=== PATIENT | female | born 1965 | race Caucasian/White ===

== ENCOUNTER 2017-01-13 13:41 | Emergency (ER) | payer SELFPAY ==
[~2017-01-13 13:41] MED LIST: ALBU8.5H2 INHALATION; ARIP10TA16 PO; ATRINH INH; FLUO20CA25 PO; FUR20 PO; GABA-502 PO; GABA800T2 PO; HYDR-3090 PO; HYDR-4003 PO; OMEP20CA11 PO; PRE20 PO; ZIT250 PO
[2017-01-14] MEDS ORDERED: FERR325C PO (10:54)
== END 2017-01-13 13:50 | disposition left against medical advice (07) ==
LOC: SED 13:41
DX: Z53.20 Procedure and treatment not carried out because of patient's decision for unspecified reasons (principal)

== ENCOUNTER 2017-01-13 19:29 | Emergency (ER) | payer SELFPAY ==
[~2017-01-13] VITALS: Ht 165.1 cm; Wt 106.8 kg
[2017-01-13 19:46] VITALS: BP 122/74; PULSE 88; RESP 16; O2SAT 97
[2017-01-14] MEDS ORDERED: FERR325C PO (10:54)
== END 2017-01-13 20:30 | disposition left against medical advice (07) ==
LOC: SED 19:29
DX: Z53.21 Procedure and treatment not carried out due to patient leaving prior to being seen by health care provider (principal)

== ENCOUNTER 2017-01-14 09:24 | Emergency (ER) | payer MEDICAID ==
--- NOTE | 2017-01-14 09:28 | ED.REPORT ---
HPI-Abd Pain F 40 and Over Date of Service Jan 14, 2017 ED Provider: Dr. Jenkins A post menopausal 51 year old female with a history of COPD presents to the ED complaining of lower abdominal cramping and vaginal bleeding with clots. Vaginal bleeding onset 1.5 months ago. She reports using 2, 8-hour tampons per hour, and states that she averages about 15 tampons per day. The patient checked into the ED twice yesterday complaining of abdominal pain, but left before she saw a provider both times. 3 weeks ago, the patient had an US done by Dr. Conteh in [place], [place] which revealed fibroids, and a cyst on left ovary without uterine wall thickening. She did not have a blood count done. She has been post menopausal since December 2015. Associated symptoms include fatigue and feelings of anxiousness. She denies any dysuria. The patient does not take iron supplements. Per nurse note, patient cannot afford PCP, cannot afford to get her prescriptions filled, and has been off of her regular medications, which include, abilify, prozaac, and lasix, for 3 months. She does not have insurance. She is originally from [place], [place] and is moving to the area to with her boyfriend whose mother has Alzheimer's. Nursing Notes Stated Complaint: ABDOMINAL PAIN Nursing Notes Reviewed: Yes Allergies: Coded Allergies: Penicillins (Verified Allergy, Intermediate, 01/14/17) Scheduled Aripiprazole (Aripiprazole) 10 Mg Tablet 10 MG PO DAILY Azithromycin (Zithromax) 250 Mg Tablet 250 MG PO DAILY Ferrous Sulfate (Iron) 325 Mg Capsule.er 325 MG PO BID Fluoxetine (Fluoxetine) 20 Mg Capsule 20 MG PO DAILY Furosemide (Furosemide) 20 Mg Tab 20 MG PO BID 8am,3pm Gabapentin (Gabapentin) 800 Mg Tablet 800 MG PO QID Gabapentin (Gabapentin) 300 Mg Capsule 300 MG PO BID Omeprazole (Omeprazole) 20 Mg Capsule. 20 MG PO DAILY Prednisone (PredniSONE) 20 Mg Tablet 40 MG PO DAILY Prednisone (PredniSONE) 20 Mg Tablet 40 MG PO DAILY Scheduled PRN Albuterol HFA (Proair HFA) 8.5 Gm Hfa.aer.ad 2 PUFFS INHALATION Q4H PRN PRN For Shortness of Breath Hydrocodone-Acetaminophen 5-300 mg (Hydrocodone-Acetaminophen 5-300 mg) 1 Each Tablet 0.5 TABLET PO Q4H PRN PRN For Cough Hydrocodone-Acetaminophen 5-325 mg (Hydrocodone-Acetaminophen 5-325 mg) 1 Each Tablet 1 TABLET PO Q4H PRN PRN For Pain Hydrocodone-Acetaminophen 5-325 mg (Hydrocodone-Acetaminophen 5-325 mg) 1 Each Tablet 1-2 TABLET PO QID PRN PRN For Pain Ipratropium [place] (Atrovent HFA) 200 Puff/12.9 Gm Inhaler 1 PUFF INH Q6H PRN PRN For Shortness of Breath General Time Seen by MD: 09:27 Chief Complaint Abdominal pain Hx Obtained From: Patient Arrived By: Walk-in Sudden in Onset?: No Onset Occurred: More than a week ago... (1.5 months ago) Symptom Duration: Constant Severity: Current: Moderate Severity: Maximum: Moderate Recent Healthcare: No recent doctor visit (Visited ED twice yesterday, but both times she left before seeing a provider.) Similar Sx Previous: No Past Medical History Past Medical History COPD Hx of pneumonia Shingles Past Surgical History Cervical spine surgery x 2 foot surgery x2 hand surgery x 2 Family History Noncontributory Smoking History Former Smoker Social History Other Social History: Good social support, From out of town Ambulatory Status Independent Review of Systems feels anxious. Constitutional: Reports: Fatigue GI: Reports: Abdominal pain Female: Reports: Vaginal bleeding - abnl (with clots), Denies: Dysuria Complete sys rev & neg: except as marked. Physical Exam Vital Signs Vital Signs (First) Date Time Temp Pulse Resp B/P Pulse Ox O2 Delivery O2 Flow Rate FiO2 01/14/17 09:33 36.2 77 16 108/70 96 Room Air Initial VS: Reviewed General/Constitutional: Awake, Alert Appearance / Presentation: Positive: Obese Respiratory / Chest: Atraumatic, Breath sounds NL, Breath sounds = bilat, No respiratory distress, No rales, No rhonchi, No wheezing Cardiovascular: Heart rate NL, Regular rhythm, Heart sounds NL, No gallop, No murmurs, No rubs Abdomen: Atraumatic, No guarding, No rebound Back: Atraumatic, Full range of motion Head / Eyes: Atraumatic, Normocephalic, PERRL, EOMI ENT: Atraumatic, Mucous membranes moist Skin: Atraumatic, Color NL, Warm, Dry Not pale. Neurologic: Oriented X3, Speech NL Neck: Atraumatic, Full range of motion Upper Extremity / MS: Atraumatic, Full range of motion Wrist / Hand: Atraumatic, Full range of motion Lower Extremity / Pelvis / MS: Atraumatic, Full range of motion Interpretation & Diagnostics Lab Results Interpretation Result Diagram: 01/14/17 1015 Test 01/14/17 10:15 White Blood Count 5.5th/mm3 (3.8-10.1) Red Blood Count 4.89mil/mm3 (3.90-5.20) Hemoglobin 13.1g/dL (12.0-15.6) Hematocrit 41.1% (35.0-46.0) Mean Corpuscular Volume 84.0fL (81-100) Mean Corpuscular Hemoglobin 26.8pg (27.0-35.0) Mean Corpuscular Hemoglobin Concent 31.9% (32.0-37.0) Red Cell Distribution Width 17.6% (12.3-15.4) Platelet Count 137bil/L (150-400) Neutrophils (%) (Auto) 60.0% (40-74) Lymphocytes (%) (Auto) 25.2% (14-46) Monocytes (%) (Auto) 10.0% (4-12) Eosinophils (%) (Auto) 4.4% (0-5) Basophils (%) (Auto) 0.4% (0-3) Re-Eval/Medical Decision Med Decision/Clinical Course No change in the frequency of bleeding over the past few weeks, hemoglobin stable, not pale and well appearing. Will start iron and recommend close outpatient follow-up with [facility]. Return precautions given. Source of Hx: Old records Re-Evaluation/Progress : Time of Eval: 10:05 Re-Evaluation/Progress Note: Rechecked patient, explained plan to perform tests. Patient understands and agrees with the plan. All questions addressed. Counseled Regarding: Diagnosis, Lab results, Need for follow-up, When/why to return to ED Discharge & Departure Primary Impression: Vaginal bleeding Additional Impression: Abdominal cramping Disposition: Home Discharge Condition All VS Reviewed: Yes Condition: Stable Additional Instructions: Thank you for entrusting us with your care today. We discussed your concerns regarding your recent vaginal bleeding and subsequent abdominal pain. We did blood work and saw that some blood levels were low, so we sent you home with prescriptions for iron and vitamin C. We encourage you to call today for a close follow-up appt. with an [facility] ([facility] office #[phone]). If at any time you feel like the bleeding is uncontrollable, you begin to faint or feel extremely weak, please do not hesitate to return to the Emergency Department or call your Primary Care Physician for follow-up care regarding this condition. Referrals: Ben Alarcon MD [facility] Scribe Attestation Portions of this note were transcribed by Rufino Galeano. I, Dr. Jenkins personally performed the history, physical exam and medical decision-making; I reviewed and confirmed the accuracy of the information in the transcribed note. Signed by: Rosey Hinton, 01/14/2017 1211. copies to: Ben Alarcon MD; [facility] Kyle Jenkins DO Jan 14, 2017 09:28 Rufino Galeano Jan 14, 2017 09:45 Merlyn Reyes MD Jan 14, 2017 10:44
[2017-01-14 09:33] VITALS: BP 108/70; PULSE 77; RESP 16; O2SAT 96
[2017-01-14 10:27] LABS: BASOPHILS % (AUTO) 0.4 % (0-3); EOSINOPHILS % (AUTO) 4.4 % (0-5); Mean Corpuscular Hemoglobin 26.8 pg (27.0-35.0); Platelet Count 137 bil/L (150-400)
[2017-01-14] MEDS ORDERED: FERR325C PO (10:54)
[2017-01-14 11:16] VITALS: BP 110/72; PULSE 77; RESP 16; O2SAT 96
== END 2017-01-14 11:10 | disposition home or self-care (01) ==
LOC: SED 09:24
DX: N93.9 Abnormal uterine and vaginal bleeding, unspecified (principal); R10.30 Lower abdominal pain, unspecified; R53.83 Other fatigue; J44.9 Chronic obstructive pulmonary disease, unspecified; Z87.891 Personal history of nicotine dependence; Z88.0 Allergy status to penicillin

== ENCOUNTER 2017-01-26 18:28 | Emergency (ER) | payer MEDICAID ==
[~2017-01-26] VITALS: Ht 165.1 cm; Wt 111.4 kg
[~2017-01-26 18:28] MED LIST changes: +FERR325C PO
[2017-01-26 18:38] VITALS: BP 125/79; PULSE 90; RESP 18; O2SAT 97
--- NOTE | 2017-01-26 20:30 | ED.REPORT ---
HPI-Psychiatric Illness Date of Service Jan 26, 2017 ED Provider: Rivera Lopez DO A 51 year old female with a history of schizoaffective disorder and bipolar disorder is brought to the ED by family due to behavioral changes. The pt has been taking 10 mg daily Abilify for ten years and has been stable. She stopped taking this medication four months ago due to insurance issues, and has been acting abnormally since. Per she has been "off her rocker" and needs to be on Abilify again, but cannot afford the medication without insurance. The pt denies suicidal or homicidal ideation. 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 Nursing Notes Stated Complaint: FACIAL PAIN,THRUSH IN MOUTH Chief Complaint: Psychiatric Complaint Nursing Notes Reviewed: Yes Allergies: Coded Allergies: Penicillins (Verified Allergy, Intermediate, 01/26/17) Scheduled Aripiprazole (Aripiprazole) 10 Mg Tablet 10 MG PO DAILY Azithromycin (Zithromax) 250 Mg Tablet 250 MG PO DAILY Ferrous Sulfate (Iron) 325 Mg Capsule.er 325 MG PO BID Fluoxetine (Fluoxetine) 20 Mg Capsule 20 MG PO DAILY Furosemide (Furosemide) 20 Mg Tab 20 MG PO BID 8am,3pm Gabapentin (Gabapentin) 800 Mg Tablet 800 MG PO QID Gabapentin (Gabapentin) 300 Mg Capsule 300 MG PO BID Omeprazole (Omeprazole) 20 Mg Capsule.dr 20 MG PO DAILY Prednisone (PredniSONE) 20 Mg Tablet 40 MG PO DAILY Prednisone (PredniSONE) 20 Mg Tablet 40 MG PO DAILY Scheduled PRN Albuterol HFA (Proair HFA) 8.5 Gm Hfa.aer.ad 2 PUFFS INHALATION Q4H PRN PRN For Shortness of Breath Hydrocodone-Acetaminophen 5-300 mg (Hydrocodone-Acetaminophen 5-300 mg) 1 Each Tablet 0.5 TABLET PO Q4H PRN PRN For Cough Hydrocodone-Acetaminophen 5-325 mg (Hydrocodone-Acetaminophen 5-325 mg) 1 Each Tablet 1 TABLET PO Q4H PRN PRN For Pain Hydrocodone-Acetaminophen 5-325 mg (Hydrocodone-Acetaminophen 5-325 mg) 1 Each Tablet 1-2 TABLET PO QID PRN PRN For Pain Ipratropium [place] (Atrovent HFA) 200 Puff/12.9 Gm Inhaler 1 PUFF INH Q6H PRN PRN For Shortness of Breath General Time Seen by MD: 20:30 Chief Complaint Other (Abnormal behavior) Hx Obtained From: Patient, Spouse Arrived By: Walk-in Onset Occurred: More than a week ago... Symptom Duration: Since onset Recent Healthcare: No recent hospitalization, Recent doctor visit Similar Sx Previous: Yes Risk-Psychiatric Illness Suicide Risk Stratification Suicide Risk Factors - Adult: No: Alcohol use, Substance abuse RF Statements: Risk factors reviewed Past Medical History Past Medical History COPD Hx of pneumonia Shingles Past Surgical History Cervical spine surgery x 2 foot surgery x2 hand surgery x 2 Family History Noncontributory Smoking History Former Smoker Social History Alcohol Use: In recovery (since 2000) Drug Use: Denies drug use Other Social History: Good social support, From out of town Ambulatory Status Independent Review of Systems Review of Systems Note: abnormal behavior Constitutional: Denies: Fever Respiratory: Denies: Non-productive cough Cardiovascular: Denies: Chest pain GI: Denies: Abdominal pain Skin: Denies Rash Psychiatric: Reports: Anxiety Complete sys rev & neg: except as marked. Physical Exam Initial Vital Signs Vital Signs (First) Date Time Temp Pulse Resp B/P Pulse Ox O2 Delivery O2 Flow Rate FiO2 01/26/17 18:38 36.3 90 18 125/79 97 Room Air Initial VS: Reviewed General/Constitutional: Awake, Alert Neurologic: Oriented X3, Speech NL, No motor deficits, No sensory deficits Psychiatric: Affect NL Abnormal Mood/Affect: Positive: Anxious Head / Eyes: Atraumatic, Normocephalic, PERRL, EOMI ENT: Atraumatic, Airway patent, Mucous membranes moist Respiratory / Chest: Atraumatic, Breath sounds NL, Breath sounds = bilat, No respiratory distress Cardiovascular: Heart rate NL, Regular rhythm, Heart sounds NL Abdomen: Atraumatic, Soft, Non-tender Skin: Atraumatic, Color NL, No rash, Warm, Dry Neck: Atraumatic, Supple, Full range of motion Back: Atraumatic, Full range of motion Upper Extremity / MS: Atraumatic, Full range of motion Lower Extremity / Pelvis / MS: Atraumatic, Full range of motion Interpretation & Diagnostics Pulse Oximetry Interpretation Pulse Oximetry Interpretation: 97% on room air Pulse Oximetry: Pulse Ox normal Pulse Oximetry Interpretation: 96% on room air Pulse Oximetry: Pulse Ox normal Re-Eval/Medical Decision Re-Evaluation/Progress : Time of Eval: 21:22 Patient Status: Condition improved Re-Evaluation/Progress Note: Pt informed of the plan for psychiatry consultation and discharge during the initial interview. The pt understands and agrees with the plan. All questions are addressed at this time. Consultation : Consulted With: Psychiatry Call Returned at: 21:07 Note: Spoke with Dr. Luna, psychiatry, regarding pt's case. Dr. Luna recommends Trilafon. Counseled Regarding: Diagnosis, Need for follow-up, When/why to return to ED Discharge & Departure Impression: Primary Impression: Schizoaffective disorder Schizoaffective disorder type: unspecified Qualified Code: F25.9 - Schizoaffective disorder, unspecified Disposition: Home Discharge Condition All VS Reviewed: Yes Condition: Stable Patient Instructions: Schizoaffective Disorder (ED) Additional Instructions: Take Trilafon 4 mg twice daily. Make an appointment with [facility] to discuss this option. I prescribed you a seven-day course of the Trilafon. Do not take this with any other sedating medications or opiates because this medication can be sedating. You will need to be seen in follow-up within the next week. Call the [facility] tomorrow morning. Tell them that you need mental health evaluation as well as help filling your prescriptions. If you have any worsening symptoms or if you develop any side effects from the medication or develop any suicidal homicidal ideations then return to the emergency department right away. It was very nice meeting you. The psychiatrist I consulted thinks that this medication will be a win for you. If symptoms are not improved feel free to return to the emergency department. Referrals: [facility] (PCP) [facility] Gilbert Barrett Attestation Portions of this note were transcribed by Morgan Pyle. I, Dr. Lopez personally performed the history, physical exam and medical decision-making; I reviewed and confirmed the accuracy of the information in the transcribed note. Signed by: Rosey Shirley, 01/27/2017 and 0005. copies to: [facility]; [facility]; Gilbert Barrett Todd P DO Jan 26, 2017 20:30 MORGAN PYLE Jan 26, 2017 21:03
[2017-01-26] MEDS ORDERED: ARIPiprazole 10 mg Tablet PO ONE (20:50)
[2017-01-26] MEDS ORDERED: LORazepam 0.5 mg Tablet PO ONE (20:50)
[2017-01-26 21:33] VITALS: BP 114/77; PULSE 75; RESP 16; O2SAT 96
== END 2017-01-26 21:43 | disposition home or self-care (01) ==
LOC: SED 18:28
DX: F25.9 Schizoaffective disorder, unspecified (principal); J44.9 Chronic obstructive pulmonary disease, unspecified; Z88.0 Allergy status to penicillin; Z87.891 Personal history of nicotine dependence; Z87.01 Personal history of pneumonia (recurrent)

== ENCOUNTER 2017-02-26 09:32 | Emergency (ER) | payer MEDICAID, OTHER ==
[~2017-02-26] VITALS: Ht 165.1 cm; Wt 109.1 kg
[2017-02-26 09:36] VITALS: BP 141/90; PULSE 86; RESP 10; O2SAT 95
--- NOTE | 2017-02-26 09:46 | ED.REPORT ---
HPI-General Illness Date of Service Feb 26, 2017 ED Provider: Geraldo Moss MD Patient is a 51 year old female with a history of chronic back pain, bipolar disorder, schizoaffective disorder and personality disorder who presents to the ED complaining of lower left back pain onset three weeks ago. Associated symptoms include difficulty stopping during urination (but not incontinence) and tingling in her first toe on the right side. Patient describes the pain as similar to her chronic back pain.She denies dysuria or hematuria, nausea, fever , abdominal pain, inability to control bowel movement, falls or trauma. The patient reports that she is out psych and pain medication and would like a refill. She has not had her Abilify for the past three days. Nursing Notes Stated Complaint: BACK PAIN,MENTAL HEALTH Chief Complaint: General Complaint Nursing Notes Reviewed: Yes Allergies: Coded Allergies: Penicillins (Verified Allergy, Intermediate, 01/26/17) Scheduled Aripiprazole (Aripiprazole) 10 Mg Tablet 10 MG PO DAILY Aripiprazole (Aripiprazole) 10 Mg Tablet 10 MG PO DAILY Azithromycin (Zithromax) 250 Mg Tablet 250 MG PO DAILY Ferrous Sulfate (Iron) 325 Mg Capsule.er 325 MG PO BID Fluoxetine (Fluoxetine) 20 Mg Capsule 20 MG PO DAILY Furosemide (Furosemide) 20 Mg Tab 20 MG PO BID 8am,3pm Gabapentin (Gabapentin) 800 Mg Tablet 800 MG PO QID Gabapentin (Gabapentin) 300 Mg Capsule 300 MG PO BID Omeprazole (Omeprazole) 20 Mg Capsule.dr 20 MG PO DAILY Prednisone (PredniSONE) 20 Mg Tablet 40 MG PO DAILY Prednisone (PredniSONE) 20 Mg Tablet 40 MG PO DAILY Scheduled PRN Albuterol HFA (Proair HFA) 8.5 Gm Hfa.aer.ad 2 PUFFS INHALATION Q4H PRN PRN For Shortness of Breath Hydrocodone-Acetaminophen 5-300 mg (Hydrocodone-Acetaminophen 5-300 mg) 1 Each Tablet 0.5 TABLET PO Q4H PRN PRN For Cough Hydrocodone-Acetaminophen 5-325 mg (Hydrocodone-Acetaminophen 5-325 mg) 1 Each Tablet 1 TABLET PO Q4H PRN PRN For Pain Hydrocodone-Acetaminophen 5-325 mg (Hydrocodone-Acetaminophen 5-325 mg) 1 Each Tablet 1-2 TABLET PO QID PRN PRN For Pain Ipratropium [place] (Atrovent HFA) 200 Puff/12.9 Gm Inhaler 1 PUFF INH Q6H PRN PRN For Shortness of Breath General Time Seen by MD: 09:41 Chief Complaint Back pain Hx Obtained From: Patient Arrived By: Walk-in Sudden in Onset?: No Onset Occurred: More than a week ago... (3 weeks) Symptom Duration: Since onset Location: : Back Quality: Same as prior Similar Sx Previous: Yes Past Medical History Past Medical History COPD Hx of pneumonia Shingles personality disorder chronic back pain bipolar disorder Reports: Schizophrenia Past Surgical History Cervical spine surgery x 2 foot surgery x2 hand surgery x 2 Family History Noncontributory Smoking History Former Smoker Social History Alcohol Use: In recovery Drug Use: Denies drug use Other Social History: Good social support, From out of town Ambulatory Status Independent Review of Systems Full Review of Systems Respiratory: Denies: Non-productive cough, Shortness of breath GI: Denies: Nausea Female: Denies: Dysuria, Hematuria, Incontinence Musculoskeletal: Reports: Back pain Neurologic: Reports: Numbness (of left first toe) Complete sys rev & neg: except as marked. Physical Exam Vital Signs Vital Signs Date Time Temp Pulse Resp B/P Pulse Ox O2 Delivery O2 Flow Rate FiO2 02/26/17 09:36 36.2 86 10 141/90 95 Room Air Initial VS: Reviewed General/Constitutional: Awake, Alert, No acute distress Head / Eyes: Atraumatic, Normocephalic, PERRL, EOMI ENT: Atraumatic, Airway patent, Mucous membranes moist Neck: Supple, Full range of motion Respiratory / Chest: Atraumatic, Breath sounds NL, Breath sounds = bilat, No respiratory distress Cardiovascular: Heart rate NL, Regular rhythm, Heart sounds NL Abdomen: Atraumatic, Soft, Non-tender Back: No midline vertebral tend, No CVA tenderness reproducable lower left back pain Upper Extremities Upper Extremity / MS: Atraumatic, Full range of motion Lower Extremity / Pelvis / MS: Atraumatic, Full range of motion Skin: Atraumatic, Color NL, No rash, Warm, Dry Neurologic: Oriented X3, Speech NL, No motor deficits, No sensory deficits Psychiatric: Affect NL, Mood NL Re-Eval/Medical Decision Med Decision/Clinical Course 51-year-old female history of bipolar and chronic low back pain presenting complaining of her typical chronic low back pain for the past 3 weeks. Denies any red flag symptoms. Diffuse tenderness left lower back. No midline tenderness. No neurological deficits. Patient was here requesting a refill on her narcotics. I counseled her that we do not refill narcotics for chronic conditions here. She accepted Toradol. She also requested a refill on her psych meds but eloped prior to receiving this prescription. Source of Hx: Old records Time of Eval: 10:22 Patient Status: Condition improved Re-Evaluation/Progress Note: Discussed plan for treatment and discharge. The patient understands and agrees to the plan for discharge. All questions were addressed. Counseled Regarding: Diagnosis, Lab results, Need for follow-up, When/why to return to ED Discharge & Departure Primary Impression: Back pain Back pain location: low back pain Chronicity: unspecified Back pain laterality: left Sciatica presence: unspecified whether sciatica present Qualified Code: M54.5 - Low back pain Additional Impression: Bipolar 1 disorder Disposition: Home Discharge Condition All VS Reviewed: Yes Condition: Stable Patient Instructions: Acute Low Back Pain (ED) Additional Instructions: Follow up with your primary care physician on Tuesday. Please return to the emergency department if you develop any new or worsening symptoms. Referrals: [facility] (PCP) Rosey Attestation Portions of this note were transcribed by Blank Oden. I, Dr. Moss personally performed the history, physical exam and medical decision-making; I reviewed and confirmed the accuracy of the information in the transcribed note. Signed by: Rosey Arriola, 02/26/17 and 1014. copies to: [facility] Geraldo Moss MD Feb 26, 2017 09:46 Heather Oden Feb 26, 2017 09:52
[2017-02-26] MEDS ORDERED: ARIP10TA16 PO (09:53)
[2017-02-26] MEDS ORDERED: ARIPiprazole 10 mg Tablet PO ONE (09:55)
== END 2017-02-26 10:42 | disposition home or self-care (01) ==
LOC: SED 09:32
DX: M54.5 Low back pain (principal); F25.0 Schizoaffective disorder, bipolar type; F60.9 Personality disorder, unspecified; Z87.891 Personal history of nicotine dependence; Z79.899 Other long term (current) drug therapy; Z88.0 Allergy status to penicillin
CPT/HCPCS: 96372; 99284; J1885

== ENCOUNTER 2017-04-20 18:16 | Emergency (ER) | payer OTHER ==
[~2017-04-20] VITALS: Ht 165.1 cm; Wt 109.1 kg
[2017-04-20 18:21] VITALS: BP 130/82; PULSE 74; RESP 18; O2SAT 97
--- NOTE | 2017-04-20 21:08 | ED.REPORT ---
HPI-Back Pain 40 and Over Date of Service Apr 20, 2017 ED Provider: Truman Shaw MD Patient is a 51 year old female with a history of chronic back pain, bipolar disorder, schizoaffective disorder and personality disorder who presents to the ED complaining of lower left back pain on and off for the last year and increasing in severity over the past 2 days. The patient has had multiple ED visits for chronic or nonurgent issues often for chronic pain. She demonstrates Benzodiazepine and opioid medication seeking behavior per previous [facility] care plan. Patient reports that sitting for a long period of time increases her symptoms. She denies dysuria. No incontinence, weakness or sensory change. Denies IVDU. Nursing Notes Stated Complaint: BACK PAIN Chief Complaint: Back Pain or Injury Nursing Notes Reviewed: Yes Allergies: Coded Allergies: Penicillins (Verified Allergy, Intermediate, 01/26/17) Scheduled Aripiprazole (Aripiprazole) 10 Mg Tablet 10 MG PO DAILY Aripiprazole (Aripiprazole) 10 Mg Tablet 10 MG PO DAILY Azithromycin (Zithromax) 250 Mg Tablet 250 MG PO DAILY Ferrous Sulfate (Iron) 325 Mg Capsule.er 325 MG PO BID Fluoxetine (Fluoxetine) 20 Mg Capsule 20 MG PO DAILY Furosemide (Furosemide) 20 Mg Tab 20 MG PO BID 8am,3pm Gabapentin (Gabapentin) 800 Mg Tablet 800 MG PO QID Gabapentin (Gabapentin) 300 Mg Capsule 300 MG PO BID Omeprazole (Omeprazole) 20 Mg Capsule.dr 20 MG PO DAILY Prednisone (PredniSONE) 20 Mg Tablet 40 MG PO DAILY Prednisone (PredniSONE) 20 Mg Tablet 40 MG PO DAILY Scheduled PRN Albuterol HFA (Proair HFA) 8.5 Gm Hfa.aer.ad 2 PUFFS INHALATION Q4H PRN PRN For Shortness of Breath Hydrocodone-Acetaminophen 5-300 mg (Hydrocodone-Acetaminophen 5-300 mg) 1 Each Tablet 0.5 TABLET PO Q4H PRN PRN For Cough Hydrocodone-Acetaminophen 5-325 mg (Hydrocodone-Acetaminophen 5-325 mg) 1 Each Tablet 1 TABLET PO Q4H PRN PRN For Pain Hydrocodone-Acetaminophen 5-325 mg (Hydrocodone-Acetaminophen 5-325 mg) 1 Each Tablet 1-2 TABLET PO QID PRN PRN For Pain Ipratropium [place] (Atrovent HFA) 200 Puff/12.9 Gm Inhaler 1 PUFF INH Q6H PRN PRN For Shortness of Breath General Time Seen by MD: 18:26 Chief Complaint Back pain Hx Obtained From: Patient Arrived By: Walk-in Sudden in Onset?: Yes Onset Occurred: 2 days ago Symptom Duration: Since onset Caused by: Chronic Injury Location: : Spinal lumbar area Quality: Painful Radiation: : Does not radiate Severity: Current: Moderate Recent Healthcare: Recent doctor visit Similar Sx Previous: Yes Past Medical History Past Medical History COPD Hx of pneumonia Shingles personality disorder chronic back pain bipolar disorder Reports: Schizophrenia Past Surgical History Cervical spine surgery x 2 foot surgery x2 hand surgery x 2 Family History Noncontributory Smoking History Former Smoker Social History Alcohol Use: In recovery Drug Use: Denies drug use Other Social History: Good social support, From out of town Ambulatory Status Independent Review of Systems Constitutional: Denies: Chills, Fever Cardiovascular: Denies: Chest pain Female: Reports: Incontinence, Denies: Dysuria Musculoskeletal: Reports: Back pain, Denies: Extremity pain, Extremity swelling, Joint pain, Joint swelling Neurologic: Reports: Numbness, Denies: Change LOC, Confusion, Dizziness, Headache, Lightheaded, Problem walking, Weakness Complete sys rev & neg: except as marked. Physical Exam Initial Vital Signs Vital Signs (First) Date Time Temp Pulse Resp B/P Pulse Ox O2 Delivery O2 Flow Rate FiO2 04/20/17 18:21 36.4 74 18 130/82 97 Room Air Initial VS: Reviewed General/Constitutional: Awake, Alert, Cooperative Respiratory / Chest: Atraumatic, Breath sounds NL, Breath sounds = bilat, No respiratory distress Cardiovascular: Heart rate NL, Regular rhythm, Heart sounds NL Abdomen: Atraumatic, Soft, Non-tender, No guarding, No rebound Back: No midline vertebral tend left paraspinal tenderness strength intact sensation intact able to stand up normally out of bed Neurologic: Oriented X3, Speech NL, No motor deficits, No sensory deficits, CN II - XII intact, Reflexes equal bilat Lower Extremity / Pelvis / MS: Atraumatic, Inspection NL, Full range of motion , No deformity Skin: Atraumatic, Warm, Dry Head / Eyes: Atraumatic, Normocephalic, PERRL, EOMI Upper Extremity / MS: Atraumatic, Inspection NL, Full range of motion, No deformity Re-Eval/Medical Decision Med Decision/Clinical Course In summary, the patient is a 51-year-old female with past medical history significant for back pain, who presents with an exacerbation of her underlying back pain. Our primary and secondary assessment reveals an awake, alert patient in no acute distress. Hemodynamically stable and afebrile. Exam reveals normal neurologic exam of the lower extremities. Given this immunocompetent, afebrile, patient's history and exam, suspect muscle strain or spasm. No concerning signs or symptoms suggestive of cauda equina, cord compression, epidural abscess or other neurologic emergency. History not suggestive of referred intraabdominal pathology or vascular emergency. There is no history of significant trauma, fever, incontinence, unexplained weight loss, cancer history, long-term steroid use or IV drug use. And given the patient's young age, I do not feel imaging is warranted at this time. Given the patient's workup, feel they are safe for discharge with conservative management. The patient was given intramuscular Toradol for some control here in the emergency department and reported improvement. Have discussed with the patient results of workup, indications for return including: motor weakness in the lower extremities and/or bowel or bladder incontinence. Also emphasized the need for PCP follow up. They understand and agree with the plan. Counseled Regarding: Diagnosis, Lab results, Need for follow-up, When/why to return to ED Discharge & Departure Impression: Primary Impression: Low back pain Chronicity: chronic Back pain laterality: left Sciatica presence: unspecified whether sciatica present Qualified Code: M54.5 - Low back pain Additional Impressions: Opiate dependence Substance use status: with unspecified opioid-induced disorder Qualified Code : F11.29 - Opioid dependence with unspecified opioid-induced disorder Back sprain Disposition: Home Discharge Condition All VS Reviewed: Yes Condition: Stable Additional Instructions: Thank you for seeking care at the emergency room. It is difficult for us to make definitive diagnoses in the ED but we believe that you are experiencing muscle spasm/sprain. Our primary goal today in the ED was to evaluate you for any life-threatening conditions. Your evaluation was reassuring. You should follow-up with a primary doctor in the next week. Please extraction, avoid prolonged bed rest and apply ice packs/hot packs. You should return to the ED immediately if you develop increasing pain, weakness , fevers, vomiting, cough, shortness of breath, chest pain, lightheadedness, weakness or any other concerning signs or symptoms. Thank you for letting us partake in your care today. Referrals: NOPCP (PCP) [facility] Scribe Attestation Portion of this note were transcribed by Franci Christine. I, Dr. Shaw, personally performed the history, physical exam, and medical decision-making: I reviewed and confirmed the accuracy for the information in the transcribed note. Signed by: christine Harris, 04/20/17 [id number] copies to: [facility] Truman Shaw MD Apr 20, 2017 21:08 Franci Christine Apr 20, 2017 21:19
== END 2017-04-20 21:30 | disposition home or self-care (01) ==
LOC: SED 18:16
DX: S33.5XXA Sprain of ligaments of lumbar spine, initial encounter (principal); X50.1XXA Overexertion from prolonged static or awkward postures, initial encounter; Y93.89 Activity, other specified; Y92.89 Other specified places as the place of occurrence of the external cause; Y99.8 Other external cause status; F11.29 Opioid dependence with unspecified opioid-induced disorder; J44.9 Chronic obstructive pulmonary disease, unspecified; F20.9 Schizophrenia, unspecified; F31.9 Bipolar disorder, unspecified; Z98.890 Other specified postprocedural states; Z87.891 Personal history of nicotine dependence; Z88.0 Allergy status to penicillin

== ENCOUNTER 2017-04-22 14:54 | Emergency (ER) | payer OTHER ==
[~2017-04-22] VITALS: Ht 165.1 cm; Wt 109.1 kg
[2017-04-22 15:01] VITALS: BP 126/87; PULSE 83; RESP 16; O2SAT 95
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
[2017-04-22] MEDS ORDERED: oxyCODONE-Acetamin 5-325 mg Tablet PO ONE (15:40)
--- NOTE | 2017-04-22 16:17 | DRSVH ---
PROCEDURE: CT CERVICAL SPINE WITHOUT CONTRAST ([id number]) INDICATIONS: trauma TECHNIQUE: Noncontrast 3 mm thick sections acquired from the skull base to the T4 level. Sagittal and coronal r eformats were then constructed. For radiation dose reduction, the following was used: automated exp osure control, adjustment of mA and/or kV according to patient size. COMPARISON: None. FINDINGS: Image quality: Diagnostic. Bones: The craniocervical and atlantoaxial joints are well-maintained. The odontoid is intact. The vertebral body heights and prevertebral soft tissues are within normal limits throughout the cervical spine without evidence to suggest acute compression fracture. No other fractures are evident within the cervical spine. The bone mineralization is within normal limits. Extensive postoperative changes of the cervical spine are present related to a C3-C7 anterior discect junior and fusion. Multiple anteriorly positioned orthopedic devices are evident. The hardware is inta ct. There is slight lucency surrounding the screws of the the C3 level. There appear to be areas of bony central canal narrowing throughout the fused levels. Severe multilevel degenerative changes of the cervical spine are present. Soft tissues: No prevertebral soft tissue swelling. The imaged lung apices are clear. Imaged porti ons of the mediastinum are unremarkable. Otherwise, the remainder of the imaged soft tissues of the neck are within normal limits. IMPRESSION: 1. No acute fracture of the cervical spine. 2. Extensive postoperative changes of the cervical spine. The hardware is intact. The alignment th rough the cervical region is within normal limits. Subtle lucency involving the C3 vertebral body sc rews may be related to loosening, on a chronic basis. 3. Prominent degenerative changes of the cervical spine. Dictated by: Josemanuel Rivera M.D. on 04/22/2017 at 16:12 Approved by: Josemanuel Rivera M.D. on 04/22/2017 at 16:15
[2017-04-22] MEDS ORDERED: OXYC1TAB24 PO (17:01)
[2017-04-22 17:26] VITALS: BP 126/92; PULSE 77; RESP 16; O2SAT 94
== END 2017-04-22 17:27 | disposition home or self-care (01) ==
LOC: SED 14:54
DX: S16.1XXA Strain of muscle, fascia and tendon at neck level, initial encounter (principal); V43.62XA Car passenger injured in collision with other type car in traffic accident, initial encounter; Y93.89 Activity, other specified; Y92.410 Unspecified street and highway as the place of occurrence of the external cause; Y99.8 Other external cause status; J44.9 Chronic obstructive pulmonary disease, unspecified; F31.9 Bipolar disorder, unspecified; F20.9 Schizophrenia, unspecified; Z98.890 Other specified postprocedural states; Z87.891 Personal history of nicotine dependence; Z88.0 Allergy status to penicillin

== ENCOUNTER 2017-04-26 17:34 | Emergency (ER) | payer OTHER ==
[~2017-04-26] VITALS: Ht 175.3 cm; Wt 109.1 kg
[~2017-04-26 17:34] MED LIST changes: +OXYC1TAB24 PO
[2017-04-26 17:37] VITALS: BP 134/82; PULSE 99; RESP 20; O2SAT 96
--- NOTE | 2017-04-26 18:19 | ED.REPORT ---
HPI-Back Pain 40 and Over Date of Service Apr 26, 2017 ED Provider: History of Present Illness: low back pain, chronic back pain with urine leakage for 2 months. no primary care. taking ibuprofen and tylenol. 04/16 ongoing since November. Nursing Notes Stated Complaint: SEVERE BACK PAIN Chief Complaint: Back Pain or Injury Nursing Notes Reviewed: Yes Allergies: Coded Allergies: Penicillins (Verified Allergy, Intermediate, 04/26/17) Scheduled Aripiprazole (Aripiprazole) 10 Mg Tablet 10 MG PO DAILY Aripiprazole (Aripiprazole) 10 Mg Tablet 10 MG PO DAILY Azithromycin (Zithromax) 250 Mg Tablet 250 MG PO DAILY Ferrous Sulfate (Iron) 325 Mg Capsule.er 325 MG PO BID Fluoxetine (Fluoxetine) 20 Mg Capsule 20 MG PO DAILY Furosemide (Furosemide) 20 Mg Tab 20 MG PO BID 8am,3pm Gabapentin (Gabapentin) 800 Mg Tablet 800 MG PO QID Gabapentin (Gabapentin) 300 Mg Capsule 300 MG PO BID Omeprazole (Omeprazole) 20 Mg Capsule.dr 20 MG PO DAILY Prednisone (PredniSONE) 20 Mg Tablet 40 MG PO DAILY Prednisone (PredniSONE) 20 Mg Tablet 40 MG PO DAILY Scheduled PRN Albuterol HFA (Proair HFA) 8.5 Gm Hfa.aer.ad 2 PUFFS INHALATION Q4H PRN PRN For Shortness of Breath Hydrocodone-Acetaminophen 5-300 mg (Hydrocodone-Acetaminophen 5-300 mg) 1 Each Tablet 0.5 TABLET PO Q4H PRN PRN For Cough Hydrocodone-Acetaminophen 5-325 mg (Hydrocodone-Acetaminophen 5-325 mg) 1 Each Tablet 1 TABLET PO Q4H PRN PRN For Pain Hydrocodone-Acetaminophen 5-325 mg (Hydrocodone-Acetaminophen 5-325 mg) 1 Each Tablet 1-2 TABLET PO QID PRN PRN For Pain Ipratropium [place] (Atrovent HFA) 200 Puff/12.9 Gm Inhaler 1 PUFF INH Q6H PRN PRN For Shortness of Breath oxyCODONE-Acetaminophen 5-325 mg (oxyCODONE-Acetaminophen 5-325 mg) 1 Each Tablet 1 TAB PO Q4H PRN PRN For Pain General Time Seen by MD: 18:19 Chief Complaint Back pain Hx Obtained From: Patient Sudden in Onset?: No Caused by: Spontaneous/no mechanism Past Medical History Past Medical History Notes: Safia report dated 10/14/2016 requests no pain medication be provided except from primary care. Past Medical History COPD Hx of pneumonia Shingles personality disorder chronic back pain bipolar disorder Reports: Schizophrenia Past Surgical History Cervical spine surgery x 2 foot surgery x2 hand surgery x 2 Family History Noncontributory Smoking History Current Every Day Smoker (7 cig a day for 15 years) Social History Alcohol Use: In recovery Drug Use: Denies drug use Other Social History: Good social support, From out of town Occupation lives with partner no work or school 04/26/2017 Ambulatory Status Independent Review of Systems Basic Review of Systems Eyes: Vision NL, No discharge Skin: No bruising, No rash, No itch Psychiatric: Normal thought content Physical Exam Initial Vital Signs Vital Signs (First) Date Time Temp Pulse Resp B/P Pulse Ox O2 Delivery O2 Flow Rate FiO2 04/26/17 17:37 36.7 99 20 134/82 96 Room Air Initial VS: Reviewed, Vital signs normal Head / Eyes: Atraumatic, Normocephalic, PERRL ENT: Mucous membranes moist, Conjunctiva normal, No scleral icterus Neck: Supple, Non-tender, Full range of motion Lymphatic: No lymphadenopathy Extremities: Vascular intact, Neuro intact, No swelling, No tenderness Skin: Warm, Dry, No cyanosis Psychiatric: Mood/affect normal, Behavior normal, Normal thought content General/Constitutional: Awake, Alert, No acute distress Respiratory / Chest: Atraumatic, Breath sounds NL, Breath sounds = bilat Cardiovascular: Heart rate NL, Regular rhythm, Heart sounds NL, No gallop Abdomen: Atraumatic, Soft, Non-tender Back: Atraumatic, Inspection NL, Full range of motion Neurologic: Oriented X3, Speech NL, No motor deficits Interpretation & Diagnostics Interpretation & Diagnostics: PROCEDURE: US PELVIC SONOGRAM, LIMITED INDICATIONS: Back pain. ? post void residual of bladder TECHNIQUE: Real-time transabdominal scanning was performed of the pelvic organs, with image documentation. COMPARISON: None. FINDINGS: Limited evaluation performed for post void urinary bladder volume. Prevoid urinary bladder volume 21 cc. Post void urinary bladder volume 0 cc. Right adnexa measures 3.6 x 3.5 x 3.1 cm. There is a 2.6 x 2.9 x 2.0 cm right adnexal cyst. Left ovary is not definitely identified. IMPRESSION: Post void urinary bladder volume of 0 cc. Dictated by: Naomy Ding MD, PhD on 04/26/2017 at 20:16 Approved by: Naomy Ding MD, PhD on 04/26/2017 at 20:17 Lab Results Interpretation Test 04/26/17 18:35 Hold Urine Received (Received) Lab Results Interpretation: Urine is negative. Patient voided about 20 minutes before US Re-Eval/Medical Decision Med Decision/Clinical Course 51 year old female presents to the ER for ongoing pain. Patient with many visists for back and neck pain. Patient states she has been haivng urine leakage for 2 months. Patient seen at ER here 6 days ago with no compliants of urine leakage. Post void US shows 21 ml in bladder. Patient able to void and US indicates 0 post void. No sign of retention. No sign of cauda equina. No sign of fracture. Discussed with patient the need to establish in primary care and to start kegel exercises. Discharge & Departure Impression: Primary Impression: Low back pain Chronicity: chronic Additional Impression: Chronic pain Chronic pain type: other chronic pain Qualified Code: G89.29 - Other chronic pain Disposition: Home Patient Instructions: Chronic Pain (ED), Low Back Strain (ED) Additional Instructions: Your urine looks good, no sign of infection. The ultrasound shows a post void residual of 21 and then 0 after voiding again. The urine leakage that you are having is related to weak pelvic floor muscles. Start doing your kegels!. Use prednisone 40 mg daily for 3 days, then 30 mg daily for 3 days, then 20 mg daily for 3 days then 10 mg daily for 3 days. Can use visteral to help with muscle relaxation. You have been assigned to Dr. Vu Harris. If you feel it is not a good fit, please call your insurance and request someone else. He also has different providers in his office. I am sorry that you are having difficulties. Referrals: Vu Harris MD EDSupervising Provider for APC: Guille Galicia MD copies to: Vu Harris MD, Sue ARNP Apr 26, 2017 18:19
--- NOTE | 2017-04-26 20:19 | DRSVH ---
PROCEDURE: US PELVIC SONOGRAM, LIMITED INDICATIONS: Back pain. ? post void residual of bladder TECHNIQUE: Real-time transabdominal scanning was performed of the pelvic organs, with image documentation. COMPARISON: None. FINDINGS: Limited evaluation performed for post void urinary bladder volume. Prevoid urinary bladder volume 21 cc. Post void urinary bladder volume 0 cc. Right adnexa measures 3.6 x 3.5 x 3.1 cm. There is a 2 .6 x 2.9 x 2.0 cm right adnexal cyst. Left ovary is not definitely identified. IMPRESSION: Post void urinary bladder volume of 0 cc. Dictated by: Naomy Ding MD, PhD on 04/26/2017 at 20:16 Approved by: Naomy Ding MD, PhD on 04/26/2017 at 20:17
== END 2017-04-26 19:45 | disposition home or self-care (01) ==
LOC: SED 17:34
DX: M54.5 Low back pain (principal); G89.29 Other chronic pain; F17.200 Nicotine dependence, unspecified, uncomplicated; Z88.0 Allergy status to penicillin; J44.9 Chronic obstructive pulmonary disease, unspecified
CPT/HCPCS: 76857; 96372; 99284; J1885

== ENCOUNTER 2017-05-03 12:56 | Emergency (ER) | payer OTHER ==
[2017-05-03 13:03] VITALS: BP 118/79; PULSE 77; RESP 16; O2SAT 97
[2017-05-03] MEDS ORDERED: hydrOXYzine Pamoate 25 mg Capsule PO ONE (13:50)
--- NOTE | 2017-05-03 13:53 | ED.REPORT ---
HPI-Back Pain 40 and Over Date of Service May 03, 2017 ED Provider: Soto Mccarthy PA-C Diana is a 51-year-old female presenting with chief complaint of lower back pain. She reports playing on the left side of the lower back which she describes as steady. She reports a history of back pain has been worsened in the last several days as she is staying with her in-laws and "cannot get comfortable" complains of anxiety. Denies numbness, tingling, weakness or pain in lower extremity. Denies fever, DM, HIV, organ transplant, immunosuppression, recent surgery, recent infection, history of back surgery, surgical implants and IV drug use. Denies bowel/bladder dysfunction and saddle anesthesia. Denies urinary symptoms such as hematuria, dysuria. Review of records indicates a history of drug-seeking behavior. [facility] report asks that we do not prescribe narcotic pain medications. Nursing Notes Stated Complaint: ANXIETY AND BACK PAIN Chief Complaint: Back Pain or Injury Nursing Notes Reviewed: Yes Allergies: Coded Allergies: Penicillins (Verified Allergy, Intermediate, 05/03/17) Scheduled Aripiprazole (Aripiprazole) 10 Mg Tablet 10 MG PO DAILY Aripiprazole (Aripiprazole) 10 Mg Tablet 10 MG PO DAILY Azithromycin (Zithromax) 250 Mg Tablet 250 MG PO DAILY Ferrous Sulfate (Iron) 325 Mg Capsule.er 325 MG PO BID Fluoxetine (Fluoxetine) 20 Mg Capsule 20 MG PO DAILY Furosemide (Furosemide) 20 Mg Tab 20 MG PO BID 8am,3pm Gabapentin (Gabapentin) 800 Mg Tablet 800 MG PO QID Gabapentin (Gabapentin) 300 Mg Capsule 300 MG PO BID Omeprazole (Omeprazole) 20 Mg Capsule.dr 20 MG PO DAILY Prednisone (PredniSONE) 20 Mg Tablet 40 MG PO DAILY Prednisone (PredniSONE) 20 Mg Tablet 40 MG PO DAILY Scheduled PRN Acetaminophen (Acetaminophen) 500 Mg Tablet 1,000 MG PO Q6H PRN PRN For Pain Albuterol HFA (Proair HFA) 8.5 Gm Hfa.aer.ad 2 PUFFS INHALATION Q4H PRN PRN For Shortness of Breath Hydrocodone-Acetaminophen 5-300 mg (Hydrocodone-Acetaminophen 5-300 mg) 1 Each Tablet 0.5 TABLET PO Q4H PRN PRN For Cough Hydrocodone-Acetaminophen 5-325 mg (Hydrocodone-Acetaminophen 5-325 mg) 1 Each Tablet 1 TABLET PO Q4H PRN PRN For Pain Hydrocodone-Acetaminophen 5-325 mg (Hydrocodone-Acetaminophen 5-325 mg) 1 Each Tablet 1-2 TABLET PO QID PRN PRN For Pain Hydroxyzine Pamoate (HydrOXYzine Pamoate) 25 Mg Capsule 25 MG PO TID PRN PRN For Anxiety or Agitation Ipratropium [place] (Atrovent HFA) 200 Puff/12.9 Gm Inhaler 1 PUFF INH Q6H PRN PRN For Shortness of Breath Naproxen (Naproxen) 500 Mg Tablet.dr 500 MG PO BID PRN PRN For Pain oxyCODONE-Acetaminophen 5-325 mg (oxyCODONE-Acetaminophen 5-325 mg) 1 Each Tablet 1 TAB PO Q4H PRN PRN For Pain General Time Seen by MD: 13:37 Chief Complaint Lumbar pain Sudden in Onset?: No Past Medical History Past Medical History Notes: [facility] report dated 10/14/2016 requests no pain medication be provided except from primary care. Past Medical History COPD Hx of pneumonia Shingles personality disorder chronic back pain bipolar disorder Reports: Schizophrenia Past Surgical History Cervical spine surgery x 2 foot surgery x2 hand surgery x 2 Family History Noncontributory Smoking History Current Every Day Smoker Social History Alcohol Use: In recovery Drug Use: Denies drug use Other Social History: Good social support, From out of town Occupation lives with partner no work or school 04/26/2017 Ambulatory Status Independent Review of Systems Negative unless stated otherwise in history of present illness Physical Exam General: Well appearing, well developed, well nourished, no acute distress. Head: Atraumatic, normocephalic. Eyes: No scleral icterus or injection. No discharge. Vision grossly intact. ENT: Voice clear, hearing grossly intact. Respiratory: Regular rate and rhythm. Breath sounds present, clear to auscultation and equal bilaterally. No respiratory distress. No increased work of breathing, speaks in complete sentences. Cardiovascular: Regular rate and rhythm, without murmur, gallop or rub. No pedal edema. Gastrointestinal: Abdomen flat and non-tender without guarding or rebound. Bowel sounds normoactive. Skin: Warm and dry. Back: Normal to inspection, no midline spinous process tenderness, negative CVA tenderness, negative SI tenderness Neurological: Normal gait, toe walk, heel walk, Romberg. Patellar and Achilles reflexes present and equal B/L. Sensation to sharp touch intact at medial leg, dorsal foot and lateral foot B/L. negative seated straight leg raise, negative seated cross straight leg raise. Psychological: Alert and oriented. Speech appropriate, linear and logical. Behavior appropriate. Initial Vital Signs Vital Signs (First) Date Time Temp Pulse Resp B/P Pulse Ox O2 Delivery O2 Flow Rate FiO2 05/03/17 13:03 36.7 77 16 118/79 97 Room Air Normal Re-Eval/Medical Decision Med Decision/Clinical Course History of female with a history of low back pain presents with chief complaint of low back pain as well as anxiety. S[facility]IA reports a history of drug-seeking behavior and the patient has many visits for pain complaints in the department. Per [facility], her PCP does not wish to be prescribed opiate analgesia. Plans of increasing left-sided back pain, which she believes is due to stay with her in- laws right now. Has red flag symptoms for cauda equina, epidural abscess, hematoma. Damage reveals a well-appearing woman with a normal neurological examination, nontender back including CVA. Vitals are within normal limits, afebrile. Back pain is without red flag symptoms for acute disc herniation, cauda equina, infection, hematoma, trauma, pyelonephritis, nephrolithiasis, AAA , cancer. I believe this is musculoskeletal back pain. I believe she is stable and safe to be discharged. Provided prescriptions for naproxen, acetaminophen, hydroxyzine. Advised regarding primary care follow-up, provided emergency return precautions. Patient verbalized understanding of, and consent to, the plan. Discharge & Departure Impression: Primary Impression: Chronic low back pain without sciatica Back pain laterality: left Qualified Code: M54.5 - Low back pain Disposition: Home Discharge Condition All VS Reviewed: Yes Additional Instructions: Evaluation for low back pain in the emergency department consists of interview and physical examination both of which are reassuring that her pain is unlikely to be due to and immediately dangerous cause such as an infection or an impingement on your spinal cord. I believe this is an exacerbation of her chronic lower back pain. Pain is best treated with 500 mg naproxen (Aleve) every 12 hours as well as 1000 mg of acetaminophen (Tylenol) every 6 hours. These vacations can be taken together for more severe pain. I will provide prescriptions. He also complained of anxiety. For this I can offer you hydroxyzine 25 mg to be taken every 8 hours as needed for anxiety. Please not drive or drink alcohol with taking this medication. Please follow up with a primary care provider as soon as possible to further address these concerns. I provided a referral to the residency clinic. Return to emergency department for new or worsening symptoms including numbness between your legs, fever, loss of bowel/bladder function. Referrals: [facility] EDSupervising Provider for APC: Charlie Lundberg MD, Seth PA-C May 03, 2017 13:53
[2017-05-03] MEDS ORDERED: ACET-171 PO (13:55)
[2017-05-03] MEDS ORDERED: HYDR-3797 PO (13:55)
[2017-05-03] MEDS ORDERED: NAPR500T5 PO (13:55)
[2017-05-03 14:17] VITALS: BP 145/87; PULSE 88; RESP 16; O2SAT 99
== END 2017-05-03 14:19 | disposition home or self-care (01) ==
LOC: SED 12:56
DX: M54.5 Low back pain (principal); J44.9 Chronic obstructive pulmonary disease, unspecified; F20.9 Schizophrenia, unspecified; F31.9 Bipolar disorder, unspecified; F17.200 Nicotine dependence, unspecified, uncomplicated; Z88.0 Allergy status to penicillin
CPT/HCPCS: 99283; Q0177

== ENCOUNTER 2017-05-24 12:03 | Emergency (ER) | payer OTHER ==
[~2017-05-24] VITALS: Ht 165.1 cm; Wt 108.2 kg
[~2017-05-24 12:03] MED LIST changes: +ACET-171 PO; +HYDR-3797 PO; +NAPR500T5 PO
[2017-05-24 12:24] VITALS: BP 138/81; PULSE 101; RESP 16; O2SAT 98
--- NOTE | 2017-05-24 13:16 | DRSVH ---
PROCEDURE: X-RAY CHEST, TWO VIEWS ([id number]) INDICATIONS: back, cp TECHNIQUE: 2 views of the chest were acquired. COMPARISON: [facility], CT, CT CHEST WO CON, 10/22/2016, 11:31. [facility], CR, XR CHEST 1VW (PORTABLE), 10/22/2016, 9:30. FINDINGS: Surgical changes and devices: Cervical fixation is present. Lungs and pleura: No pleural effusions or pneumothorax. Left upper lobe mass like opacity measuring 20 mm. It appears mildly more prominent when compared to 10/22/16. It is noted this appeared to cor respond to a healing rib fracture identified on 10/22/16. Mediastinum: Mediastinal contours are normal. Heart size is normal. Bones and chest wall: No suspicious bony abnormalities. Soft tissues appear unremarkable. IMPRESSION: 1. No acute pulmonary process. 2. Left upper lobe masslike opacity, mildly more prominent when compared to prior exam. It is noted t hat this corresponded to a focus of healing rib on prior exam. Increased prominence is suspected to b e related to increased sclerosis secondary to healing. Dictated by: Ouomu Villalba M.D. on 05/24/2017 at 13:08 Approved by: Oumou Villalba M.D. on 05/24/2017 at 13:15
[2017-05-24 13:37] LABS: BASOPHILS % (AUTO) 0.1 % (0-3); EOSINOPHILS % (AUTO) 4.2 % (0-5); MONOCYTES % (AUTO) 7.2 % (4-12); Mean Corpuscular Hemoglobin 27.3 pg (27.0-35.0); Mean Corpuscular Volume 82.3 fL (81-100); NEUTROPHILS % (AUTO) 67.9 % (40-74); Platelet Count 153 bil/L (150-400)
--- NOTE | 2017-05-24 13:49 | ED.REPORT ---
HPI-Dyspnea / Wheezing Date of Service May 24, 2017 ED Provider: Gertrude Sandoval History of Present Illness: left back pain, can't breath, cough for 3 to 4 days. has copd , had pneumonia in oct and November. primary care is no one. Nursing Notes Stated Complaint: POSS. PNEUMONIA/LOW BACK PAIN Chief Complaint: Respiratory Distress Nursing Notes Reviewed: Yes Allergies: Coded Allergies: Penicillins (Verified Allergy, Intermediate, 05/24/17) Scheduled Aripiprazole (Aripiprazole) 10 Mg Tablet 10 MG PO DAILY Aripiprazole (Aripiprazole) 10 Mg Tablet 10 MG PO DAILY Azithromycin (Zithromax) 250 Mg Tablet 250 MG PO DAILY Ferrous Sulfate (Iron) 325 Mg Capsule.er 325 MG PO BID Fluoxetine (Fluoxetine) 20 Mg Capsule 20 MG PO DAILY Furosemide (Furosemide) 20 Mg Tab 20 MG PO BID 8am,3pm Gabapentin (Gabapentin) 800 Mg Tablet 800 MG PO QID Gabapentin (Gabapentin) 300 Mg Capsule 300 MG PO BID Omeprazole (Omeprazole) 20 Mg Capsule.dr 20 MG PO DAILY Prednisone (PredniSONE) 20 Mg Tablet 40 MG PO DAILY Prednisone (PredniSONE) 20 Mg Tablet 40 MG PO DAILY Scheduled PRN Acetaminophen (Acetaminophen) 500 Mg Tablet 1,000 MG PO Q6H PRN PRN For Pain Albuterol HFA (Proair HFA) 8.5 Gm Hfa.aer.ad 2 PUFFS INHALATION Q4H PRN PRN For Shortness of Breath Hydrocodone-Acetaminophen 5-300 mg (Hydrocodone-Acetaminophen 5-300 mg) 1 Each Tablet 0.5 TABLET PO Q4H PRN PRN For Cough Hydrocodone-Acetaminophen 5-325 mg (Hydrocodone-Acetaminophen 5-325 mg) 1 Each Tablet 1 TABLET PO Q4H PRN PRN For Pain Hydrocodone-Acetaminophen 5-325 mg (Hydrocodone-Acetaminophen 5-325 mg) 1 Each Tablet 1-2 TABLET PO QID PRN PRN For Pain Hydroxyzine Pamoate (HydrOXYzine Pamoate) 25 Mg Capsule 25 MG PO TID PRN PRN For Anxiety or Agitation Ipratropium [place] (Atrovent HFA) 200 Puff/12.9 Gm Inhaler 1 PUFF INH Q6H PRN PRN For Shortness of Breath Naproxen (Naproxen) 500 Mg Tablet.dr 500 MG PO BID PRN PRN For Pain oxyCODONE-Acetaminophen 5-325 mg (oxyCODONE-Acetaminophen 5-325 mg) 1 Each Tablet 1 TAB PO Q4H PRN PRN For Pain General Time Seen by MD: 13:47 Chief Complaint Shortness of breath Hx Obtained From: Patient Sudden in Onset?: No Past Medical History Past Medical History Notes: [place] report dated 10/14/2016 requests no pain medication be provided except from primary care. Past Medical History COPD Hx of pneumonia Shingles personality disorder chronic back pain bipolar disorder Reports: Schizophrenia Past Surgical History Cervical spine surgery x 2 foot surgery x2 hand surgery x 2 Family History Noncontributory Smoking History Current Every Day Smoker Social History Alcohol Use: In recovery Drug Use: Denies drug use Other Social History: Good social support, From out of town Occupation lives with partner no work or school 04/26/2017 Ambulatory Status Independent Review of Systems Basic Review of Systems Eyes: Vision NL, No discharge Hematologic: No bleeding, No bruising Psychiatric: Normal thought content Physical Exam Initial Vital Signs Vital Signs (First) Date Time Temp Pulse Resp B/P Pulse Ox O2 Delivery O2 Flow Rate FiO2 05/24/17 12:24 36.8 101 16 138/81 98 Room Air Initial VS: Reviewed, Vital signs normal Head / Eyes: Atraumatic, Normocephalic, PERRL ENT: Mucous membranes moist, Conjunctiva normal, No scleral icterus Abdomen / GI: Soft, Non-tender, No guarding, No rebound, No distention Back: No CVA tenderness Lymphatic: No lymphadenopathy Extremities: Vascular intact, Neuro intact, No swelling, No tenderness Skin: Warm, Dry, No cyanosis Neurologic: Alert, Oriented, Nonfocal Psychiatric: Mood/affect normal, Behavior normal, Normal thought content General/Constitutional: Awake, Alert, No acute distress, Well appearing, Well developed, Well hydrated, Well nourished, Cooperative, Not toxic appearing Neck: Atraumatic, Supple, No meningismus, Full range of motion Respiratory / Chest: Atraumatic insp and exp wheezing, decreased after a double duo neb Cardiovascular: Heart rate NL, Regular rhythm, Heart sounds NL ENT: Atraumatic, Airway patent, Mucous membranes moist, Pharynx NL Interpretation & Diagnostics Lab Results Interpretation Result Diagram: 05/24/17 1321 05/24/17 1321 Test 05/24/17 13:21 05/24/17 14:07 White Blood Count 6.9th/mm3 (3.8-10.1) Red Blood Count 5.31mil/mm3 (3.90-5.20) Hemoglobin 14.5g/dL (12.0-15.6) Hematocrit 43.7% (35.0-46.0) Mean Corpuscular Volume 82.3fL (81-100) Mean Corpuscular Hemoglobin 27.3pg (27.0-35.0) Mean Corpuscular Hemoglobin Concent 33.2% (32.0-37.0) Red Cell Distribution Width 16.7% (12.3-15.4) Platelet Count 153bil/L (150-400) Neutrophils (%) (Auto) 67.9% (40-74) Lymphocytes (%) (Auto) 20.5% (14-46) Monocytes (%) (Auto) 7.2% (4-12) Eosinophils (%) (Auto) 4.2% (0-5) Basophils (%) (Auto) 0.1% (0-3) Sodium Level 137mEq/L (134-144) Potassium Level 4.0mEq/L (3.5-5.2) Chloride Level 99mEq/L (97-108) Carbon Dioxide Level 25mmol/L (18-29) Blood Urea Nitrogen 8mg/dL (6-24) Creatinine 0.47mg/dL (0.57-1.00) Estimat Glomerular Filtration Rate 201mL/min (>59) Glucose Level 110mg/dL (60-99) Calcium Level 9.1mg/dL (8.5-10.1) Total Bilirubin 0.4mg/dL (0.0-1.2) Aspartate Amino Transf (AST/SGOT) 87U/L (0-50) Alanine Aminotransferase (ALT/SGPT) 73U/L (0-32) Alkaline Phosphatase 111U/L (25-150) Troponin T < 0.010ug/L (0.0-0.011) Total Protein 7.3g/dL (6.4-8.4) Albumin 3.6g/dL (3.4-5.0) Urine Color Yellow (YELLOW) Urine Appearance Hazy (CLEAR,HAZY) Urine pH 6.5 (5.0-8.0) Urine Specific [place] 1.010 (1.003-1.035) Urine Protein Negativemg/dL (NEG,TRACE) Urine Glucose (UA) Negativemg/dL (NEGATIVE) Urine Ketones Negativemg/dL (NEGATIVE) Urine Occult Blood Negative (NEGATIVE) Urine Nitrite Negative (NEGATIVE) Urine Bilirubin Negative (NEGATIVE) Urine Urobilinogen Normalmg/dL (NORMAL) Urine Leukocyte Esterase Negative (NEGATIVE) Urine RBC 0-2/hpf (0-2) Urine WBC 0-5/hpf (0-5) Urine Epithelial Cells Occasional/hpf (NONE-MOD) Urine Crystals None seen (NONE SEEN) Urine Bacteria Few/hpf (NONE-FEW) Urine Hyaline Casts None/lpf (NONE) Urine Granular Casts None seen (NONE SEEN) Urine Waxy Casts None seen (NONE SEEN) Urine Red Blood Cell Casts None seen (NONE SEEN) Urine White Blood Cell Casts None seen (NONE SEEN) Urine Mucus None seen (None Seen) Urine Trichomonas None seen (NONE SEEN) Urine Yeast None (NONE SEEN) Urine Culture Reflexed Not indicated Lab Results Interpretation: u tox positive for meth and amphetamine Re-Eval/Medical Decision Med Decision/Clinical Course 51 year old female presents to the ER for evualation of shortness of breath. Patient feels she has a pneumonia. REports COPD still with smoking. . CT does not identify any blood clot or pneumonia. Patient reporting breathing better after double duo neb. Provided rx's for nebulizer and medications. Encouraged follow up. Discharge & Departure Impression: Primary Impression: COPD exacerbation Disposition: Home Patient Instructions: How to Use a Nebulizer (ED), Chronic Obstructive Pulmonary Disease (ED) Additional Instructions: Need to stop smoking. Need to establish in primary care. Please find a clinic that you feel has a good fit. A prescription for the nebulizer and the medication is being provided. Also the inhaler of albuterol. The CT does not show any pneumonia, blood clot or any concerning findings. Do a dose of steroids 40 mg daily for 5 days. Referrals: Lurdes Harris MD EDSupervising Provider for APC: Kyle Jenkins DO copies to: Lurdes Harris MD, Sue ARNP May 24, 2017 13:49
[2017-05-24] MEDS ORDERED: Albuterol-Ipratropium 3 mL Inhalation Solution NEB ONE (14:00)
[2017-05-24 14:03] LABS: TROPONIN T < 0.010 ug/L (0.0-0.011)
[2017-05-24 14:28] VITALS: PULSE 85; RESP 18; O2SAT 96
[2017-05-24 14:35] LABS: APPEARANCE,URINE HAZY (CLEAR,HAZY); COLOR,URINE YELLOW (YELLOW); OCCULT BLOOD,URINE NEGATIVE (NEGATIVE); PH,URINE 6.5 (5.0-8.0); UROBILINOGEN,URINE NORMAL (NORMAL)
[2017-05-24 14:36] VITALS: BP 129/77; PULSE 92; RESP 18; O2SAT 97
--- NOTE | 2017-05-24 15:47 | DRSVH ---
PROCEDURE: CT ANGIO CHEST PULMONARY EMBOLISM ([id number]) INDICATIONS: Shortness of breath TECHNIQUE: After the administration of intravenous contrast, 2 mm thick sections acquired from the pulmonary api val to the posterior costophrenic angles. 3-dimensional maximum intensity projection (MIP) coronal a nd sagittal reformats were then acquired through the thorax. For radiation dose reduction, the follo wing was used: automated exposure control, adjustment of mA and/or kV according to patient size. COMPARISON: [facility], CT, CT CHEST WO CON, 10/22/2016, 11:31. FINDINGS: Image quality: Diagnostic. Pulmonary arteries: Pulmonary arteries are normal in size, and demonstrate no intraluminal filling d efects to suggest central pulmonary embolism. Lungs and pleura: Mild respiratory motion artifact and/or expiratory technique results in vascular cr owding throughout the lungs, which makes it difficult to evaluate for subtle parenchymal abnormalitie s. However, there is no focal consolidation, effusion, or pneumothorax. No lung mass or obvious pul monary nodule is appreciated. Mediastinum: Heart size is normal, without pericardial effusion. No mediastinal or hilar adenopathy . Thoracic aorta is normal in caliber and enhancement. Mild prominence of the wall of the esophagus is identified. There is a small hiatal hernia. Bones and chest wall: No suspicious bony lesions. Ribs and thoracic spine appear intact throughout. Age-appropriate degenerative changes of the spine are present. Thyroid gland is not enlarged or ad equately evaluated. No axillary or supraclavicular adenopathy. Abdomen: The included portions of the upper abdomen demonstrate moderate nodularity to the surface of the liver. The spleen is borderline prominent in size, but not completely included on this exam. O therwise, the included portions of the upper abdomen are unremarkable. IMPRESSION: 1. No pulmonary emboli. 2. No acute cardiopulmonary process is suspected. 2. Small hiatal hernia. Prominence of the distal esophageal wall may be related to chronic reflux e sophagitis. Please correlate clinically. 4. Cirrhotic liver morphology. Dictated by: Josemanuel Rivera M.D. on 05/24/2017 at 14:20 Approved by: Josemanuel Rivera M.D. on 05/24/2017 at 14:46
[2017-05-24 16:16] VITALS: BP 130/72; PULSE 94; RESP 18; O2SAT 98
== END 2017-05-24 16:16 | disposition home or self-care (01) ==
LOC: SED 12:03
DX: J44.1 Chronic obstructive pulmonary disease with (acute) exacerbation (principal); F17.200 Nicotine dependence, unspecified, uncomplicated; Z79.899 Other long term (current) drug therapy; Z88.0 Allergy status to penicillin
CPT/HCPCS: 36415; 71020; 71275; 80053; 81000; 81025; 84484; 85025; 93005; 96374; 99284; J1885; J7620; Q9967

== ENCOUNTER 2017-06-25 15:09 | Emergency (ER) | payer OTHER ==
[~2017-06-25] VITALS: Ht 165.1 cm; Wt 97.7 kg
[2017-06-25 15:11] VITALS: BP 163/116; PULSE 89; RESP 20; O2SAT 98
--- NOTE | 2017-06-25 15:23 | ED.REPORT ---
HPI-Chest Pain 40 and Over Date of Service Jun 25, 2017 ED Provider: Nithin Haji MD Pt is a left-handed 51 year old female with a history of pneumonia, chronic back pain, bipolar disorder, smoking and COPD and a family history of cardiac disease who presents to the ED complaining of chest pain onset 2 nights ago that has radiated to her left shoulder and down her arm. She also complains of associated nausea, shortness of breath, diaphoresis and cough, though she denies fever. She reports that the chest pain has resolved but the shoulder pain has remained constant. Pt reports the pain is exacerbated by movement and has limited the range of motion of her left arm. She denies any recent trauma or injury, or problems with exertion in recent days. The pt took ibuprofen this morning with minimal relief, and denies any recent medication changes. She has not experienced similar symptoms before. Nursing Notes Stated Complaint: CHEST PAIN, LEFT ARM AND SHOULDER PAIN Chief Complaint: Chest Pain Nursing Notes Reviewed: Yes ([employer] not reconciled) Allergies: Coded Allergies: Penicillins (Verified Allergy, Intermediate, 05/24/17) Scheduled Aripiprazole (Aripiprazole) 10 Mg Tablet 10 MG PO DAILY Aripiprazole (Aripiprazole) 10 Mg Tablet 10 MG PO DAILY Azithromycin (Zithromax) 250 Mg Tablet 250 MG PO DAILY Ferrous Sulfate (Iron) 325 Mg Capsule.er 325 MG PO BID Fluoxetine (Fluoxetine) 20 Mg Capsule 20 MG PO DAILY Furosemide (Furosemide) 20 Mg Tab 20 MG PO BID 8am,3pm Gabapentin (Gabapentin) 800 Mg Tablet 800 MG PO QID Gabapentin (Gabapentin) 300 Mg Capsule 300 MG PO BID Omeprazole (Omeprazole) 20 Mg Capsule.dr 20 MG PO DAILY Prednisone (PredniSONE) 20 Mg Tablet 40 MG PO DAILY Prednisone (PredniSONE) 20 Mg Tablet 40 MG PO DAILY Scheduled PRN Acetaminophen (Acetaminophen) 500 Mg Tablet 1,000 MG PO Q6H PRN PRN For Pain Albuterol HFA (Proair HFA) 8.5 Gm Hfa.aer.ad 2 PUFFS INHALATION Q4H PRN PRN For Shortness of Breath Hydrocodone-Acetaminophen 5-300 mg (Hydrocodone-Acetaminophen 5-300 mg) 1 Each Tablet 0.5 TABLET PO Q4H PRN PRN For Cough Hydrocodone-Acetaminophen 5-325 mg (Hydrocodone-Acetaminophen 5-325 mg) 1 Each Tablet 1 TABLET PO Q4H PRN PRN For Pain Hydrocodone-Acetaminophen 5-325 mg (Hydrocodone-Acetaminophen 5-325 mg) 1 Each Tablet 1-2 TABLET PO QID PRN PRN For Pain Hydrocodone-Acetaminophen 5-325 mg (Hydrocodone-Acetaminophen 5-325 mg) 1 Each Tablet 1-2 TABLET PO Q4H PRN PRN For Pain Hydroxyzine Pamoate (HydrOXYzine Pamoate) 25 Mg Capsule 25 MG PO TID PRN PRN For Anxiety or Agitation Ipratropium Whiteside (Atrovent HFA) 200 Puff/12.9 Gm Inhaler 1 PUFF INH Q6H PRN PRN For Shortness of Breath Naproxen (Naproxen) 500 Mg Tablet.dr 500 MG PO BID PRN PRN For Pain oxyCODONE-Acetaminophen 5-325 mg (oxyCODONE-Acetaminophen 5-325 mg) 1 Each Tablet 1 TAB PO Q4H PRN PRN For Pain General Time Seen by MD: 15:21 Chief Complaint Chest pain Hx Obtained From: Patient Arrived By: Walk-in Sudden in Onset?: Yes Onset Occurred: 2 days ago Symptom Duration: Since onset Location: : Chest left: Chest right Quality: Painful Radiation: : Arm left: Shoulder left Severity: Current: Moderate Recent Healthcare: No recent doctor visit, No recent hospitalization Similar Sx Previous: Yes Risk Factors )( CAD Risk Stratification No Diabetes mellitus, No Hyperlipidemia, No Known CAD Risk factors reviewed )( TAD Risk Stratification No High intensity wt lifting, No Hypertension Risk factors reviewed )( PE Risk Stratification No Immobilization, No , No Previous DVT, No Trauma Risk factors reviewed Past Medical History Past Medical History Notes: [place] report dated 10/14/2016 requests no pain medication be provided except from primary care. Past Medical History COPD Hx of pneumonia Shingles personality disorder chronic back pain bipolar disorder Reports: Schizophrenia Past Surgical History Cervical spine surgery x 2 foot surgery x2 hand surgery x 2 Family History Cardiac disease Smoking History Current Every Day Smoker Social History Alcohol Use: In recovery Drug Use: Denies drug use Other Social History: Good social support, From out of town Occupation lives with partner no work or school 04/26/2017 Ambulatory Status Independent Review of Systems Constitutional: Denies: Fever Respiratory: Reports: Non-productive cough, Shortness of breath, Denies: Wheezing Cardiovascular: Reports: Chest pain GI: Reports: Constipation, Nausea Musculoskeletal: Reports: Extremity pain (Left shoulder and arm) Skin: Reports Diaphoresis, Denies Rash Complete sys rev & neg: except as marked. Physical Exam Initial Vital Signs Vital Signs (First) Date Time Temp Pulse Resp B/P Pulse Ox O2 Delivery O2 Flow Rate FiO2 06/25/17 15:11 36.4 89 20 163/116 98 Room Air Initial VS: Reviewed, Vital signs abnormal (HTN) General/Constitutional: Awake, Alert, Cooperative Behavior: Positive: Anxious Respiratory / Chest: Atraumatic, Breath sounds NL, Breath sounds = bilat, No respiratory distress no bronchospasm Cardiovascular: Heart rate NL, Regular rhythm, Heart sounds NL Abdomen: Atraumatic, Soft, Non-tender Neck: Atraumatic, Supple, Full range of motion Back: Atraumatic, Inspection NL, Full range of motion Lower Extremity / Pelvis / MS: Atraumatic, Inspection NL, Full range of motion Skin: Atraumatic, Color NL, No rash, Warm, Dry Neurologic: Oriented X3, Speech NL, No motor deficits, No sensory deficits Psychiatric: Affect NL, Mood NL Head / Eyes: Atraumatic, Normocephalic, PERRL, EOMI ENT: Atraumatic, Airway patent, Mucous membranes moist Upper Extremity / MS: Neurologic intact, Vascular intact Slightly reduced ROM in left shoulder Symptoms not fully reproducible No weakness to rotator cuff Interpretation & Diagnostics Lab Results Interpretation Result Diagram: 06/25/17 1655 06/25/17 1655 Test 06/25/17 16:55 White Blood Count 6.3th/mm3 (3.8-10.1) Red Blood Count 5.24mil/mm3 (3.90-5.20) Hemoglobin 14.6g/dL (12.0-15.6) Hematocrit 44.2% (35.0-46.0) Mean Corpuscular Volume 84.4fL (81-100) Mean Corpuscular Hemoglobin 27.9pg (27.0-35.0) Mean Corpuscular Hemoglobin Concent 33.0% (32.0-37.0) Red Cell Distribution Width 16.8% (12.3-15.4) Platelet Count 138bil/L (150-400) Neutrophils (%) (Auto) 61.4% (40-74) Lymphocytes (%) (Auto) 21.9% (14-46) Monocytes (%) (Auto) 9.9% (4-12) Eosinophils (%) (Auto) 6.2% (0-5) Basophils (%) (Auto) 0.3% (0-3) Sodium Level 138mEq/L (134-144) Potassium Level 3.6mEq/L (3.5-5.2) Chloride Level 98mEq/L (97-108) Carbon Dioxide Level 24mmol/L (18-29) Blood Urea Nitrogen 8mg/dL (6-24) Creatinine 0.47mg/dL (0.57-1.00) Estimat Glomerular Filtration Rate 201mL/min (>59) Glucose Level 128mg/dL (60-99) Calcium Level 8.9mg/dL (8.5-10.1) Magnesium Level 2.0mg/dL (1.6-2.6) Total Bilirubin 0.4mg/dL (0.0-1.2) Aspartate Amino Transf (AST/SGOT) 89U/L (0-50) Alanine Aminotransferase (ALT/SGPT) 71U/L (0-32) Alkaline Phosphatase 120U/L (25-150) Troponin T < 0.010ug/L (0.0-0.011) Pro-B-Type Natriuretic Peptide 12.59pg/mL (0-249) Total Protein 7.4g/dL (6.4-8.4) Albumin 3.7g/dL (3.4-5.0) ECG Interpretation ECG Interpretation: Sinus rhythm rate 83 No ischemic findings Time: 15:37 Interpreted by: ED physician X-Ray Chest Interpretation Chest Xray Interpretation: IMPRESSION: Normal considering mildly reduced inspiratory volume and large body habitus. Dictated by: Estuardo Santos M.D. on 06/25/2017 at 16:00 Approved by: Estuardo Santos M.D. on 06/25/2017 at 16:00 View: Portable Interpretation / Wet Read by: Interpret - Radiologist X-Ray Interpretation Xray Interpretation: IMPRESSION: No trauma found. Prior cervical fusion plating. Dictated by: Estuardo Santos M.D. on 06/25/2017 at 16:08 Approved by: Estuardo Santos M.D. on 06/25/2017 at 16:09 X-Ray Ordered: Shoulder left Interpretation / Wet Read by: Interpret - Radiologist Re-Eval/Medical Decision Med Decision/Clinical Course HEART score 2, the patient is low risk for MACE This is a 51-year-old female presents with left shoulder pain. As a mechanical component, but also trace since of shortness of breath although she is a smoker with COPD. Symptoms are worsened with movement of the shoulder, and now more the arm. She has no prior history of cardiac disease. Symptoms have been constant and persistent for 2 days guarding the day before yesterday. History of the department the patient appears mildly uncomfortable, and again there appears to be a mechanical component, although the patient does have generally well preserved range of motion, intact strength without overt evidence of complete rotator cuff injury. Arm is neurovascularly intact. Lungs are clear no bronchospasm. EKG is normal without ischemic changes. Blood work is normal including a negative troponin after 2 days continuous symptoms. Plain rate rest of the shoulder negative for acute pathology. Patient received a single dose of pain medicine with complete relief of symptoms. Overall the patient's low risk for cardiac etiology given 2 days continue symptoms with normal EKG labs and a heart score 2-this means the patient's reason For discharge, and again my suspicion for cardiac or pulmonary etiology is low. Patient's entirely comfortable this. I have written for a few hydrocodone and requested the patient follow-up with the PCP next week, but if also explained the patient develops new or worsening symptoms patient return to the emergency department. Patient's initially hypertensive, although this resolved with pain management. She is discharged asymptomatic in good condition Source of Hx: Old records Time of Eval: 17:27 Patient Status: Pain improved Re-Evaluation/Progress Note: Patient rechecked. Pt is comfortably sleeping on the left shoulder. Time of Eval: 18:11 Patient Status: Condition improved Re-Evaluation/Progress Note: Pt rechecked, who is comfortable. The diagnosis and plan for discharge are discussed. The pt understands and agrees with the plan. All questions are addressed at this time. Counseled Regarding: Diagnosis, Lab results, Need for follow-up, When/why to return to ED Discharge & Departure Primary Impression: Chest pain Chest pain type: unspecified Qualified Code: R07.9 - Chest pain, unspecified Additional Impression: HTN (hypertension) Hypertension type: unspecified secondary hypertension Qualified Code: I15.9 - Secondary hypertension, unspecified Disposition: Home Discharge Condition All VS Reviewed: Yes Condition: Improved Additional Instructions: 1. A dangerous cause of left shoulder pain was not identified. 2. Your heard test test included a EKG and biomarkers were normal, with no findings to indicate a heart condition or problem. 3. No heavy lifting. 4. X-ray of your shoulder was normal. It is possible he may have rotator cuff injury, this is not when seen on [id number] I did not find clear signs of a rotator cuff tear on your exam. 5. Take ibuprofen 400-800 mg 3 times a day. 6. Needed for more severe pain take hydrocodone. 1-2 tabs up to every 4-6 hours. Use sparingly. Note this medication contains narcotic and does cause some drowsiness, no driving for at least 4-6 hours. 7. Call your doctor on Tuesday to schedule follow-up appointment is still having soreness. 8. Return again to the emergency department review of note worsening symptoms- fever, shortness of breath Referrals: Leena Gil MD [facility] Scribe Attestation Portions of this note were transcribed by Cindy Gee and Morgan Pyle. I, Dr. Haji personally performed the history, physical exam and medical decision -making; I reviewed and confirmed the accuracy of the information in the transcribed note. copies to: Leena Gil MD; [facility] Nithin Haji MD Jun 25, 2017 15:23 Cindy Gee Jun 25, 2017 15:35 MORGAN PYLE Jun 25, 2017 18:55
[2017-06-25 15:29] VITALS: BP 119/62; PULSE 84; RESP 18; O2SAT 99
[2017-06-25] MEDS: HYDROmorphone 0.5 mg/0.5 mL iSecure Syringe IVPUSH ONE ×2 (15:35→17:10)
[2017-06-25] MEDS: Ondansetron 2 mg/mL 2 mL Inj IVPUSH ONE ×2 (15:35→17:10)
--- NOTE | 2017-06-25 16:02 | DRSVH ---
PROCEDURE: X-RAY CHEST ONE VIEW, PORTABLE ([id number]) INDICATIONS: CP TECHNIQUE: One view of the chest was acquired. COMPARISON: [facility], CR, XR CHEST 2VW, 05/24/2017, 12:57. FINDINGS: Surgical changes and devices: Anterior cervical fusion plate partially visualized, stable over time. Lungs and pleura: No pleural effusions or pneumothorax. Lungs are clear. Mediastinum: Mediastinal contours appear normal. Heart size is normal. Bones and chest wall: No suspicious bony lesions. Overlying soft tissues appear unremarkable. IMPRESSION: Normal considering mildly reduced inspiratory volume and large body habitus. Dictated by: Estuardo Santos M.D. on 06/25/2017 at 16:00 Approved by: Estuardo Santos M.D. on 06/25/2017 at 16:00
--- NOTE | 2017-06-25 16:10 | DRSVH ---
PROCEDURE: X-RAY LEFT SHOULDER, MINIMUM TWO VIEWS ([id number]) INDICATIONS: Pain TECHNIQUE: 3 views of the shoulder were acquired. COMPARISON: None. FINDINGS: Bones: No fractures or dislocations. No suspicious bony lesions. Visualized ribs appear intact. Soft tissues: No suspicious soft tissue calcifications. IMPRESSION: No trauma found. Prior cervical fusion plating. Dictated by: Estuardo Santos M.D. on 06/25/2017 at 16:08 Approved by: Estuardo Santos M.D. on 06/25/2017 at 16:09
[2017-06-25 16:51] VITALS: BP 101/43; PULSE 78; RESP 17; O2SAT 95
[2017-06-25 17:17] LABS: BASOPHILS % (AUTO) 0.3 % (0-3); EOSINOPHILS % (AUTO) 6.2 % (0-5); MONOCYTES % (AUTO) 9.9 % (4-12); Mean Corpuscular Hemoglobin 27.9 pg (27.0-35.0); Mean Corpuscular Volume 84.4 fL (81-100); NEUTROPHILS % (AUTO) 61.4 % (40-74); Platelet Count 138 bil/L (150-400)
[2017-06-25 17:51] LABS: TROPONIN T < 0.010 ug/L (0.0-0.011)
[2017-06-25] MEDS ORDERED: HYDR-4003 PO (18:02)
[2017-06-25 18:10] VITALS: PULSE 79; RESP 15; O2SAT 92
[2017-06-25 18:28] VITALS: BP 124/57; PULSE 79; RESP 16; O2SAT 92
== END 2017-06-25 18:28 | disposition home or self-care (01) ==
LOC: SED 15:09
DX: R07.89 Other chest pain (principal); I15.9 Secondary hypertension, unspecified; M25.512 Pain in left shoulder; M54.9 Dorsalgia, unspecified; G89.29 Other chronic pain; F31.9 Bipolar disorder, unspecified; J44.9 Chronic obstructive pulmonary disease, unspecified; F17.200 Nicotine dependence, unspecified, uncomplicated; Z87.01 Personal history of pneumonia (recurrent); Z88.0 Allergy status to penicillin
CPT/HCPCS: 36415; 71010; 73030; 80053; 82948; 83735; 83880; 84484; 85025; 93005; 96374; 96375; 99285; J1170; J2405

== ENCOUNTER 2017-08-03 21:03 | Emergency (ER) | payer OTHER ==
[~2017-08-03] VITALS: Ht 165.1 cm; Wt 109.1 kg
[2017-08-03 21:28] VITALS: BP 148/77; PULSE 90; RESP 16; O2SAT 99
== END 2017-08-03 22:25 | disposition left against medical advice (07) ==
LOC: SED 21:03
DX: M54.2 Cervicalgia (principal); Z53.21 Procedure and treatment not carried out due to patient leaving prior to being seen by health care provider